=== PATIENT | male | born 1995 | race Hispanic/Latino ===

== ENCOUNTER 2019-11-23 01:05 | Emergency (ER) | payer MEDICAID, OTHER, SELFPAY ==
[~2019-11-23] VITALS: Ht 190.5 cm; Wt 70.8 kg
[2019-11-23] MEDS ORDERED: AZITHROMYCIN 250MG TABLET PO ONE (03:45)
[2019-11-23] MEDS ORDERED: LIDOCAINE 1% SDV 5ML VIAL DILUENT ONE (03:45)
[2019-11-23] MEDS ORDERED: cefTRIAXone SOD 250MG VIAL (J0696 PER 250MG) IM ONE (03:45)
[2019-11-23 04:29] VITALS: BP 131/62
[2019-11-23 05:04] LABS: CHLAMYDIA DNA AMPLIFICATION NEGATIVE (NEGATIVE); GC DNA AMPLIFICATION POSITIVE (NEGATIVE)
== END 2019-11-23 04:28 | disposition home or self-care (01) ==
LOC: M ED 01:05
DX: R30.0 Dysuria (principal); R36.9 Urethral discharge, unspecified; J45.909 Unspecified asthma, uncomplicated; Z88.0 Allergy status to penicillin
CPT/HCPCS: 87661; 96372; 99283; J0696

== ENCOUNTER → 2020-01-09 | Outpatient (REF) | payer MEDICAID, OTHER | LOC: M LAB REF 21:24 | PROVIDERS: ATTEND Physician Assistant Medical | DX: Z11.3 Encounter for screening for infections with a predominantly sexual mode of transmission (principal) ==

== ENCOUNTER 2020-05-30 17:21 | Emergency (ER) | payer OTHER ==
[~2020-05-30] VITALS: Ht 182.9 cm; Wt 67.3 kg
[2020-05-30 17:22] VITALS: BP 135/57
[2020-05-30] MEDS ORDERED: ACETAMINOPHEN 325 MG TAB PO ONE (17:55)
--- NOTE | 2020-05-30 18:45 | REPVR ---
PROCEDURE INFORMATION: Exam: CT Maxillofacial Without Contrast Exam date and time: 05/30/2020 5:59 PM Age: 24 years old Clinical indication: Injury or trauma; Other: Hit playing football; Blunt trauma (contusions or hematomas); Nose; Additional info: Pain over bridge of nose, hit playing football 4-5 days ago TECHNIQUE: Imaging protocol: Computed tomography images of the face without contrast. Radiation optimization: All CT scans at this facility use at least one of these dose optimization techniques: automated exposure control; mA and/or kV adjustment per patient size (includes targeted exams where dose is matched to clinical indication); or iterative reconstruction. COMPARISON: No relevant prior studies available. FINDINGS: Orbital cavity: Normal appearing orbits. Bones/joints: There is a complex fracture of the left nasal ala with 3 mm of inward displacement of the distal fracture fragment. The fracture line extends through the midline nasal bone near the tip In addition in this area there is severe soft tissue swelling. The orbital floors appears intact. Paranasal sinuses: Clear paranasal sinuses. Mastoid air cells: Clear mastoid air cells. IMPRESSION: Complex fracture of the left nasal ala with 3 mm of offset. The fracture line extends through the midline nasal bone is well near the tip. There is marked soft tissue swelling left side of the nose. Electronically signed by: Alexander Walker On 05/30/2020 18:45:17 PM
[2020-05-30] MEDS ORDERED: IBUPROFEN 800 MG TAB PO ONE (19:00)
[2020-05-30] MEDS ORDERED: DOXYCYCLINE HYCLATE 100MG TABLET PO ONE (19:00)
[2020-05-30] MEDS ORDERED: IBUP80TA PO (19:01)
[2020-05-30] MEDS ORDERED: MEDR4PAK PO (19:01)
[2020-05-30] MEDS ORDERED: DOXY100C37 PO (19:01)
== END 2020-05-30 19:20 | disposition home or self-care (01) ==
LOC: M ED 17:21
DX: S02.2XXA Fracture of nasal bones, initial encounter for closed fracture (principal); W50.0XXA Accidental hit or strike by another person, initial encounter; Y92.9 Unspecified place or not applicable; Y93.62 Activity, american flag or touch football; Y99.9 Unspecified external cause status; F17.200 Nicotine dependence, unspecified, uncomplicated; F12.10 Cannabis abuse, uncomplicated; Z88.0 Allergy status to penicillin

== ENCOUNTER → 2020-06-10 | Outpatient (REF) | payer OTHER ==
[~2020-06-10] MED LIST: DOXY100C37 PO; IBUP80TA PO; MEDR4PAK PO
[2020-06-10 17:37] LABS: BASO # 0.1 10^3/uL (0.0-0.2); BASO % 0.7 % (0.0-1.0); EOS # 0.1 10^3/uL (0.0-0.5); EOS % 1.6 % (0.0-3.0); HEMATOCRIT 47.2 % (42.0-52.0); HEMOGLOBIN 14.9 g/dl (13.5-17.5); LYMPH # 1.3 10^3/uL (1.5-5.0); LYMPH % 17.3 % (24.0-44.0); MEAN CORPUSCULAR HEMOGLOBIN 31.3 pg (27.0-33.0); MEAN CORPUSCULAR HGB CONC 31.6 g/dl (32.0-36.5); MEAN CORPUSCULAR VOLUME 99.2 fl (80.0-96.0); MONO # 0.7 10^3/uL (0.0-0.8); MONO % 8.9 % (2.0-8.0); NEUTROPHILS # 5.5 10^3/uL (1.5-8.5); NEUTROPHILS % 71.2 % (36.0-66.0); PLATELET COUNT, AUTOMATED 335 10^3/uL (150-450); RED BLOOD COUNT 4.76 10^6/uL (4.30-6.10); WHITE BLOOD COUNT 7.7 10^3/uL (4.0-10.0)
[2020-06-10 18:06] LABS: ALBUMIN 3.8 GM/DL (3.2-5.2); ALT/SGPT 162 U/L (12-78); BILIRUBIN,TOTAL 0.5 MG/DL (0.2-1.0); BLOOD UREA NITROGEN 11 MG/DL (7-18); CALCIUM LEVEL 9.2 MG/DL (8.5-10.1); CARBON DIOXIDE LEVEL 33 MEQ/L (21-32); CHLORIDE LEVEL 106 MEQ/L (98-107); CHOLESTEROL LEVEL 145 MG/DL (<200); CREATININE FOR GFR 0.83 MG/DL (0.70-1.30); FREE T4 1.25 NG/DL (0.76-1.46); GLOMERULAR FILTRATION RATE > 60.0 (>60); GLUCOSE, FASTING 88 MG/DL (70-100); HDL CHOLESTEROL 65 MG/DL (>40); LDL CHOLESTEROL 71 MG/DL (<100); NON-HDL-C 80 MG/DL; POTASSIUM SERUM 4.6 MEQ/L (3.5-5.1); SODIUM LEVEL 141 MEQ/L (136-145); THYROID STIMULATING HORMONE 0.539 uIU/ML (0.358-3.740); TOTAL PROTEIN 7.9 GM/DL (6.4-8.2); TRIGLYCERIDES LEVEL 45 MG/DL (<150)
[2020-06-10 18:47] LABS: HIV 1&2 SCREEN CENTAUR NEGATIVE (NEGATIVE)
[2020-06-10 19:01] LABS: HEPATITIS C VIRUS ABY INDEX > 11.0 INDEX (<0.8)
== END ==
LOC: M LAB REF 16:34
PROVIDERS: ATTEND Nurse Practitioner Family
DX: Z00.00 Encounter for general adult medical examination without abnormal findings (principal); F41.9 Anxiety disorder, unspecified; F17.200 Nicotine dependence, unspecified, uncomplicated

== ENCOUNTER 2020-07-30 21:13 | Emergency (ER) | payer OTHER ==
[~2020-07-30] VITALS: Ht 182.9 cm; Wt 62.5 kg
[~2020-07-30 21:13] MED LIST changes: -DOXY100C37 PO; +DOXY1CAP62 PO
[2020-07-30] MEDS ORDERED: ALBU8.5H INH (21:19)
[2020-07-31] MEDS ORDERED: CEPH500C PO (01:44)
[2020-07-31] MEDS ORDERED: CEPHALEXIN 500 MG CAP PO ONE (01:45)
[2020-07-31 02:03] VITALS: BP 116/48
== END 2020-07-31 02:06 | disposition home or self-care (01) ==
LOC: M ED 21:13
DX: L03.114 Cellulitis of left upper limb (principal); Z88.0 Allergy status to penicillin

== ENCOUNTER 2020-09-15 18:53 | Emergency (ER) | payer OTHER ==
[~2020-09-15] VITALS: Ht 182.9 cm; Wt 63.6 kg
[~2020-09-15 18:53] MED LIST changes: +ALBU8.5H INH; +CEPH500C PO
[2020-09-15 19:47] VITALS: BP 138/85
== END 2020-09-15 23:38 | disposition home or self-care (01) ==
LOC: M ED 18:53
DX: F29 Unspecified psychosis not due to a substance or known physiological condition (principal); F19.10 Other psychoactive substance abuse, uncomplicated; J45.909 Unspecified asthma, uncomplicated; F17.200 Nicotine dependence, unspecified, uncomplicated; Z79.899 Other long term (current) drug therapy; Z88.0 Allergy status to penicillin

== ENCOUNTER 2020-09-18 01:16 | Emergency (ER) | payer OTHER ==
[~2020-09-18] VITALS: Ht 182.9 cm; Wt 59.2 kg
[2020-09-18] MEDS ORDERED: LORazepam 2 MG/ML VIAL IV STA ×2 (01:18→01:42)
[2020-09-18] MEDS ORDERED: LORazepam 2 MG/ML VIAL As Ordered ONE (01:20)
[2020-09-18] MEDS ORDERED: NS 1,000 ML IV ONE (01:20)
[2020-09-18 01:34] LABS: BASO # 0.1 10^3/uL (0.0-0.2); BASO % 0.3 % (0.0-1.0); EOS % 0.1 % (0.0-3.0); HEMATOCRIT 39.1 % (42.0-52.0); HEMOGLOBIN 13.3 g/dl (13.5-17.5); LYMPH # 2.6 10^3/uL (1.5-5.0); LYMPH % 13.4 % (24.0-44.0); MEAN CORPUSCULAR HEMOGLOBIN 31.4 pg (27.0-33.0); MEAN CORPUSCULAR VOLUME 92.2 fl (80.0-96.0); MONO # 1.9 10^3/uL (0.0-0.8); MONO % 9.7 % (2.0-8.0); NEUTROPHILS # 14.5 10^3/uL (1.5-8.5); PLATELET COUNT, AUTOMATED 341 10^3/uL (150-450); RED BLOOD COUNT 4.24 10^6/uL (4.30-6.10); WHITE BLOOD COUNT 19.1 10^3/uL (4.0-10.0)
[2020-09-18] MEDS ORDERED: DEXTROSE 50% 50 ML SYRINGE IV STA (02:54)
[2020-09-18] MEDS ORDERED: DEXTROSE 50% 50 ML SYRINGE As Ordered ONE (02:54)
[2020-09-18 03:05] LABS: ACETAMINOPHEN LEVEL < 2.0 UG/ML (10.0-30.0); ALT/SGPT 97 U/L (12-78); BILIRUBIN,DIRECT 0.3 MG/DL (0.0-0.2); BLOOD UREA NITROGEN 22 MG/DL (7-18); CARBON DIOXIDE LEVEL 27 MEQ/L (21-32); CHLORIDE LEVEL 111 MEQ/L (98-107); CPK CREATINE PHOSPHOKINASE 877 U/L (39-308); ETHYL ALCOHOL (ETHANOL) < 0.003 % (0.000-0.010); GLOMERULAR FILTRATION RATE > 60.0 (>60); GLUCOSE, FASTING 30 MG/DL (70-100); POTASSIUM SERUM 3.7 MEQ/L (3.5-5.1); SALICYLATE LEVEL < 1.7 MG/DL (5.0-30.0); SODIUM LEVEL 149 MEQ/L (136-145); THYROID STIMULATING HORMONE 0.764 uIU/ML (0.358-3.740); TOTAL PROTEIN 7.2 GM/DL (6.4-8.2)
[2020-09-18 03:34] LABS: AMPHETAMINES LEVEL URINE POSITIVE (NEGATIVE); BARBITURATES URINE NEGATIVE (NEGATIVE); BENZODIAZEPINES URINE NEGATIVE (NEGATIVE); CANNABINOIDS URINE POSITIVE (NEGATIVE); COCAINE METABOLITE URINE NEGATIVE (NEGATIVE); METHADONE URINE NEGATIVE (NEGATIVE); OPIATES URINE POSITIVE (NEGATIVE); PHENCYCLIDINE URINE NEGATIVE (NEGATIVE)
[2020-09-18 12:45] VITALS: BP 118/59
== END 2020-09-18 13:27 | disposition home or self-care (01) ==
LOC: M ED 01:16
DX: F19.10 Other psychoactive substance abuse, uncomplicated (principal); Z88.0 Allergy status to penicillin
CPT/HCPCS: 51701; 80048; 80076; 80143; 80307; 82077; 82550; 84443; 85025; 93041; 94760; 96361; 96374; 96375; 96376; 99285; J2060

== ENCOUNTER 2020-09-29 02:51 | Emergency (ER) | payer OTHER ==
[~2020-09-29] VITALS: Ht 182.9 cm; Wt 62.9 kg
[2020-09-29] MEDS ORDERED: BACT800T5 PO (07:30)
[2020-09-29] MEDS ORDERED: IBUPROFEN 800 MG TAB PO ONE (07:30)
[2020-09-29 07:52] VITALS: BP 128/65
== END 2020-09-29 08:01 | disposition home or self-care (01) ==
LOC: M ED 02:51
DX: L01.01 Non-bullous impetigo (principal); F11.10 Opioid abuse, uncomplicated; F42.4 Excoriation (skin-picking) disorder; Z88.0 Allergy status to penicillin

== ENCOUNTER 2020-09-30 18:36 | Emergency (ER) | payer OTHER ==
[~2020-09-30] VITALS: Ht 182.9 cm; Wt 61.4 kg
[~2020-09-30 18:36] MED LIST changes: +BACT800T5 PO
[2020-09-30 18:55] VITALS: BP 118/86
== END 2020-09-30 20:18 | disposition left against medical advice (07) ==
LOC: M ED 18:36
DX: F19.10 Other psychoactive substance abuse, uncomplicated (principal); Z53.9 Procedure and treatment not carried out, unspecified reason; F11.10 Opioid abuse, uncomplicated; F17.200 Nicotine dependence, unspecified, uncomplicated; Z88.0 Allergy status to penicillin

== ENCOUNTER 2020-10-19 20:02 | Emergency (ER) | payer OTHER ==
[~2020-10-19] VITALS: Ht 182.9 cm; Wt 68.2 kg
[2020-10-19] MEDS ORDERED: LORazepam 2 MG/ML VIAL As Ordered ONE (20:05)
[2020-10-19] MEDS ORDERED: HALOPERIDOL 5MG/ML VIAL (J1630 PER 1) As Ordered ONE (20:05)
[2020-10-19] MEDS ORDERED: LORazepam 2 MG/ML VIAL IM ONE (20:05)
[2020-10-19] MEDS ORDERED: diphenhydrAMINE 50MG/ML VIAL (J1200) As Ordered ONE (20:05)
[2020-10-19] MEDS ORDERED: NS 1,000 ML IV ONE (20:05)
[2020-10-19] MEDS ORDERED: diphenhydrAMINE 50MG/ML VIAL (J1200) IM ONE (20:05)
[2020-10-19] MEDS ORDERED: HALOPERIDOL 5MG/ML VIAL (J1630 PER 1) IM ONE (20:05)
[2020-10-19 20:54] LABS: BASO # 0.1 10^3/uL (0.0-0.2); BASO % 0.8 % (0.0-1.0); EOS # 0.2 10^3/uL (0.0-0.5); EOS % 3.5 % (0.0-3.0); HEMATOCRIT 44.1 % (42.0-52.0); HEMOGLOBIN 14.4 g/dl (13.5-17.5); LYMPH # 1.4 10^3/uL (1.5-5.0); LYMPH % 22.6 % (24.0-44.0); MEAN CORPUSCULAR HGB CONC 32.7 g/dl (32.0-36.5); MEAN CORPUSCULAR VOLUME 94.8 fl (80.0-96.0); MONO # 0.7 10^3/uL (0.0-0.8); NEUTROPHILS # 3.7 10^3/uL (1.5-8.5); NEUTROPHILS % 61.6 % (36.0-66.0); PLATELET COUNT, AUTOMATED 316 10^3/uL (150-450); RED BLOOD COUNT 4.65 10^6/uL (4.30-6.10)
[2020-10-19 21:27] LABS: ACETAMINOPHEN LEVEL < 2.0 UG/ML (10.0-30.0); ALBUMIN 3.7 GM/DL (3.2-5.2); ALT/SGPT 174 U/L (12-78); BILIRUBIN,DIRECT 0.2 MG/DL (0.0-0.2); BILIRUBIN,TOTAL 0.5 MG/DL (0.2-1.0); BLOOD UREA NITROGEN 14 MG/DL (7-18); CALCIUM LEVEL 8.8 MG/DL (8.5-10.1); CARBON DIOXIDE LEVEL 27 MEQ/L (21-32); CHLORIDE LEVEL 109 MEQ/L (98-107); CPK CREATINE PHOSPHOKINASE 279 U/L (39-308); CREATININE FOR GFR 1.02 MG/DL (0.70-1.30); ETHYL ALCOHOL (ETHANOL) 0.004 % (0.000-0.010); GLOMERULAR FILTRATION RATE > 60.0 (>60); GLUCOSE, FASTING 95 MG/DL (70-100); SALICYLATE LEVEL < 1.7 MG/DL (5.0-30.0); SODIUM LEVEL 143 MEQ/L (136-145); TOTAL PROTEIN 7.2 GM/DL (6.4-8.2)
[2020-10-20] MEDS ORDERED: NS 1,000 ML IV ONE (00:05)
[2020-10-20 02:13] LABS: AMPHETAMINES LEVEL URINE POSITIVE (NEGATIVE); BARBITURATES URINE NEGATIVE (NEGATIVE); BENZODIAZEPINES URINE NEGATIVE (NEGATIVE); CANNABINOIDS URINE POSITIVE (NEGATIVE); COCAINE METABOLITE URINE NEGATIVE (NEGATIVE); METHADONE URINE NEGATIVE (NEGATIVE); OPIATES URINE POSITIVE (NEGATIVE); PHENCYCLIDINE URINE NEGATIVE (NEGATIVE)
[2020-10-20 12:55] VITALS: BP 101/50
--- NOTE | 2020-10-20 20:03 | ECGEPIP ---
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
== END 2020-10-20 13:00 | disposition home or self-care (01) ==
LOC: M ED 20:02
DX: F19.10 Other psychoactive substance abuse, uncomplicated (principal); F10.10 Alcohol abuse, uncomplicated; Z88.0 Allergy status to penicillin
CPT/HCPCS: 51701; 80048; 80076; 80143; 80307; 82077; 82550; 84443; 85025; 93005; 93041; 94760; 96360; 96361; 96372; 99285; J1200; J1630; J2060

== ENCOUNTER 2020-11-01 18:46 | Emergency (ER) | payer OTHER ==
[~2020-11-01] VITALS: Ht 182.9 cm; Wt 67.2 kg
[2020-11-01 18:55] VITALS: BP 134/69
[2020-11-01 19:18] LABS: HEMATOCRIT 36.4 % (42.0-52.0); HEMOGLOBIN 12.3 g/dl (13.5-17.5); MEAN CORPUSCULAR HEMOGLOBIN 31.5 pg (27.0-33.0); MEAN CORPUSCULAR HGB CONC 33.8 g/dl (32.0-36.5); MEAN CORPUSCULAR VOLUME 93.1 fl (80.0-96.0); PLATELET COUNT, AUTOMATED 307 10^3/uL (150-450); RED BLOOD COUNT 3.91 10^6/uL (4.30-6.10); WHITE BLOOD COUNT 12.4 10^3/uL (4.0-10.0)
[2020-11-01] MEDS ORDERED: BUPR1FIL (19:56)
[2020-11-01 19:57] LABS: ACETAMINOPHEN LEVEL 2.2 UG/ML (10.0-30.0); ALBUMIN 3.6 GM/DL (3.2-5.2); ALT/SGPT 140 U/L (12-78); BILIRUBIN,DIRECT 0.2 MG/DL (0.0-0.2); BILIRUBIN,TOTAL 0.5 MG/DL (0.2-1.0); BLOOD UREA NITROGEN 16 MG/DL (7-18); CALCIUM LEVEL 8.5 MG/DL (8.5-10.1); CARBON DIOXIDE LEVEL 28 MEQ/L (21-32); CHLORIDE LEVEL 106 MEQ/L (98-107); CREATININE FOR GFR 1.22 MG/DL (0.70-1.30); ETHYL ALCOHOL (ETHANOL) 0.003 % (0.000-0.010); GLOMERULAR FILTRATION RATE > 60.0 (>60); GLUCOSE, FASTING 46 MG/DL (70-100); POTASSIUM SERUM 3.9 MEQ/L (3.5-5.1); SALICYLATE LEVEL < 1.7 MG/DL (5.0-30.0); SODIUM LEVEL 142 MEQ/L (136-145); TOTAL PROTEIN 6.4 GM/DL (6.4-8.2)
[2020-11-01 20:21] LABS: AMPHETAMINES LEVEL URINE POSITIVE (NEGATIVE); BARBITURATES URINE NEGATIVE (NEGATIVE); BENZODIAZEPINES URINE NEGATIVE (NEGATIVE); CANNABINOIDS URINE NEGATIVE (NEGATIVE); COCAINE METABOLITE URINE NEGATIVE (NEGATIVE); METHADONE URINE NEGATIVE (NEGATIVE); OPIATES URINE POSITIVE (NEGATIVE); PHENCYCLIDINE URINE NEGATIVE (NEGATIVE)
== END 2020-11-01 20:10 | disposition left against medical advice (07) ==
LOC: M ED 18:46
DX: R45.1 Restlessness and agitation (principal); Z53.9 Procedure and treatment not carried out, unspecified reason; F19.10 Other psychoactive substance abuse, uncomplicated; F17.200 Nicotine dependence, unspecified, uncomplicated; Z88.0 Allergy status to penicillin

== ENCOUNTER 2020-11-05 10:35 | Emergency (ER) | payer OTHER ==
[~2020-11-05] VITALS: Ht 182.9 cm; Wt 65.9 kg
[~2020-11-05 10:35] MED LIST changes: +BUPR1FIL
[2020-11-05 10:54] VITALS: BP 120/56
== END 2020-11-05 12:57 | disposition home or self-care (01) ==
LOC: M ED 10:35
DX: F19.10 Other psychoactive substance abuse, uncomplicated (principal); Z88.0 Allergy status to penicillin

== ENCOUNTER 2020-11-08 15:16 | Emergency (ER) | payer OTHER ==
[2020-11-08] MEDS ORDERED: LIDOCAINE 2% 5ML JELLY UROJET TOP ONE (15:30)
[2020-11-08 15:54] LABS: HEMATOCRIT 40.4 % (42.0-52.0); HEMOGLOBIN 13.3 g/dl (13.5-17.5); MEAN CORPUSCULAR HEMOGLOBIN 31.4 pg (27.0-33.0); MEAN CORPUSCULAR HGB CONC 32.9 g/dl (32.0-36.5); MEAN CORPUSCULAR VOLUME 95.5 fl (80.0-96.0); PLATELET COUNT, AUTOMATED 333 10^3/uL (150-450); RED BLOOD COUNT 4.23 10^6/uL (4.30-6.10); WHITE BLOOD COUNT 8.4 10^3/uL (4.0-10.0)
[2020-11-08 16:29] LABS: ACETAMINOPHEN LEVEL < 2.0 UG/ML (10.0-30.0); ALBUMIN 3.6 GM/DL (3.2-5.2); ALT/SGPT 172 U/L (12-78); BILIRUBIN,DIRECT < 0.1 MG/DL (0.0-0.2); BILIRUBIN,TOTAL 0.3 MG/DL (0.2-1.0); BLOOD UREA NITROGEN 16 MG/DL (7-18); CALCIUM LEVEL 8.7 MG/DL (8.5-10.1); CARBON DIOXIDE LEVEL 26 MEQ/L (21-32); CHLORIDE LEVEL 107 MEQ/L (98-107); CREATININE FOR GFR 1.12 MG/DL (0.70-1.30); ETHYL ALCOHOL (ETHANOL) < 0.003 % (0.000-0.010); GLOMERULAR FILTRATION RATE > 60.0 (>60); GLUCOSE, FASTING 86 MG/DL (70-100); POTASSIUM SERUM 4.1 MEQ/L (3.5-5.1); SALICYLATE LEVEL < 1.7 MG/DL (5.0-30.0); SODIUM LEVEL 141 MEQ/L (136-145); THYROID STIMULATING HORMONE 0.483 uIU/ML (0.358-3.740)
[2020-11-08 17:00] VITALS: BP 119/58
[2020-11-08 17:46] LABS: AMPHETAMINES LEVEL URINE POSITIVE (NEGATIVE); BARBITURATES URINE NEGATIVE (NEGATIVE); BENZODIAZEPINES URINE POSITIVE (NEGATIVE); CANNABINOIDS URINE NEGATIVE (NEGATIVE); COCAINE METABOLITE URINE NEGATIVE (NEGATIVE); METHADONE URINE NEGATIVE (NEGATIVE); OPIATES URINE POSITIVE (NEGATIVE); PHENCYCLIDINE URINE NEGATIVE (NEGATIVE)
== END 2020-11-08 16:25 | disposition home or self-care (01) ==
LOC: M ED 15:16
DX: F11.10 Opioid abuse, uncomplicated (principal); Z88.0 Allergy status to penicillin

== ENCOUNTER 2020-11-09 02:06 | Emergency (ER) | payer OTHER ==
[~2020-11-09] VITALS: Ht 180.3 cm; Wt 72.7 kg
[2020-11-09 02:37] LABS: BASO % 0.2 % (0.0-1.0); EOS # 0.1 10^3/uL (0.0-0.5); EOS % 0.9 % (0.0-3.0); HEMATOCRIT 39.7 % (42.0-52.0); HEMOGLOBIN 13.3 g/dl (13.5-17.5); LYMPH # 1.8 10^3/uL (1.5-5.0); LYMPH % 14.4 % (24.0-44.0); MEAN CORPUSCULAR HEMOGLOBIN 31.7 pg (27.0-33.0); MEAN CORPUSCULAR HGB CONC 33.5 g/dl (32.0-36.5); MEAN CORPUSCULAR VOLUME 94.5 fl (80.0-96.0); MONO # 1.1 10^3/uL (0.0-0.8); MONO % 8.5 % (2.0-8.0); NEUTROPHILS # 9.4 10^3/uL (1.5-8.5); NEUTROPHILS % 75.3 % (36.0-66.0); PLATELET COUNT, AUTOMATED 306 10^3/uL (150-450); WHITE BLOOD COUNT 12.5 10^3/uL (4.0-10.0)
[2020-11-09 03:12] LABS: ACETAMINOPHEN LEVEL < 2.0 UG/ML (10.0-30.0); ALBUMIN 3.6 GM/DL (3.2-5.2); ALT/SGPT 171 U/L (12-78); BILIRUBIN,DIRECT 0.1 MG/DL (0.0-0.2); BILIRUBIN,TOTAL 0.3 MG/DL (0.2-1.0); BLOOD UREA NITROGEN 16 MG/DL (7-18); CALCIUM LEVEL 8.8 MG/DL (8.5-10.1); CARBON DIOXIDE LEVEL 20 MEQ/L (21-32); CHLORIDE LEVEL 106 MEQ/L (98-107); CPK CREATINE PHOSPHOKINASE 714 U/L (39-308); ETHYL ALCOHOL (ETHANOL) 0.003 % (0.000-0.010); GLOMERULAR FILTRATION RATE > 60.0 (>60); GLUCOSE, FASTING 81 MG/DL (70-100); POTASSIUM SERUM 3.6 MEQ/L (3.5-5.1); SALICYLATE LEVEL < 1.7 MG/DL (5.0-30.0); SODIUM LEVEL 141 MEQ/L (136-145)
[2020-11-09 08:00] VITALS: BP 136/59
--- NOTE | 2020-11-10 05:35 | ECGEPIP ---
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
== END 2020-11-09 08:30 | disposition home or self-care (01) ==
LOC: M ED 02:06
DX: F19.10 Other psychoactive substance abuse, uncomplicated (principal); I45.19 Other right bundle-branch block; F32.9 Major depressive disorder, single episode, unspecified; F17.200 Nicotine dependence, unspecified, uncomplicated; Z88.0 Allergy status to penicillin

== ENCOUNTER 2020-11-17 04:14 | Inpatient (IN) | payer OTHER ==
[~2020-11-17] VITALS: Ht 182.9 cm; Wt 60.0 kg
[2020-11-17 04:52] LABS: HEMATOCRIT 39.2 % (42.0-52.0); HEMOGLOBIN 13.2 g/dl (13.5-17.5); MEAN CORPUSCULAR HEMOGLOBIN 31.7 pg (27.0-33.0); MEAN CORPUSCULAR HGB CONC 33.7 g/dl (32.0-36.5); MEAN CORPUSCULAR VOLUME 94.2 fl (80.0-96.0); PLATELET COUNT, AUTOMATED 293 10^3/uL (150-450); RED BLOOD COUNT 4.16 10^6/uL (4.30-6.10); WHITE BLOOD COUNT 11.4 10^3/uL (4.0-10.0)
[2020-11-17 05:25] LABS: ACETAMINOPHEN LEVEL < 2.0 UG/ML (10.0-30.0); ALBUMIN 3.7 GM/DL (3.2-5.2); ALT/SGPT 172 U/L (12-78); BILIRUBIN,DIRECT 0.2 MG/DL (0.0-0.2); BILIRUBIN,TOTAL 0.5 MG/DL (0.2-1.0); BLOOD UREA NITROGEN 19 MG/DL (7-18); CALCIUM LEVEL 8.7 MG/DL (8.5-10.1); CARBON DIOXIDE LEVEL 29 MEQ/L (21-32); CHLORIDE LEVEL 105 MEQ/L (98-107); CPK CREATINE PHOSPHOKINASE 248 U/L (39-308); CREATININE FOR GFR 1.01 MG/DL (0.70-1.30); ETHYL ALCOHOL (ETHANOL) < 0.003 % (0.000-0.010); GLOMERULAR FILTRATION RATE > 60.0 (>60); GLUCOSE, FASTING 80 MG/DL (70-100); POTASSIUM SERUM 4.3 MEQ/L (3.5-5.1); SALICYLATE LEVEL < 1.7 MG/DL (5.0-30.0); SODIUM LEVEL 140 MEQ/L (136-145); TOTAL PROTEIN 7.2 GM/DL (6.4-8.2)
[2020-11-17 05:29] LABS: AMPHETAMINES LEVEL URINE POSITIVE (NEGATIVE); BARBITURATES URINE NEGATIVE (NEGATIVE); BENZODIAZEPINES URINE NEGATIVE (NEGATIVE); CANNABINOIDS URINE POSITIVE (NEGATIVE); COCAINE METABOLITE URINE NEGATIVE (NEGATIVE); METHADONE URINE NEGATIVE (NEGATIVE); OPIATES URINE NEGATIVE (NEGATIVE); PHENCYCLIDINE URINE NEGATIVE (NEGATIVE)
[2020-11-17 13:42] LABS: RSV AMPLIFICATION NEGATIVE (NEGATIVE)
[2020-11-17] MEDS ORDERED: HOME MED LIST COMPLETE! XX SCH (13:55)
[2020-11-17] MEDS ORDERED: MAALOX 30 ML SUSP *UDC PO PRN (16:05)
[2020-11-17] MEDS ORDERED: MOM 30ML SUSPENSION UDC PO PRN (16:05)
[2020-11-17] MEDS ORDERED: ACETAMINOPHEN TAB 650MG DOSE (2X325MG) PO PRN (16:05)
[2020-11-17] MEDS ORDERED: traZODone 50 MG TAB PO PRN (16:05)
[2020-11-17 17:16] VITALS: BP 120/69
[2020-11-18 06:41] VITALS: BP 133/60
--- NOTE | 2020-11-18 14:24 | MHHPEPDOC ---
General Date Of Admission: Nov 18, 2020 Legal Status: 9.39 Chief Complaint I do not want to see anybody ". History of Present Illness HISTORY OF THE PRESENT ILLNESS: Patient refused to see me as per the ED report ,patient is a 24 -year-old , male, who presents with [place] [employer] for disorderly and destructive behavior at a hotel room. Patient reports he used heroin today however is extremely hyperactive Police Department reports he was using Michelle and police were called to the hotel where patient was breaking things far father from [place] was present and in town to help encourage patient to get clean per the police department patient made suicidal homicidal statement to his father while trying to light the carpet on five saying he was going to suffocate both of them patient arrives as 9.41 currently is uncooperative . He was positive for cannabis and amphetamine. Past Psychiatric History Not known, however he visited emergency room multiple times due to intoxication, he was positive for cannabis amphetamine and opiates during his last ER visit. Past Medical History Medical Problems Unable to obtain Family Medical/Psychiatric HX Medical Problems Not known Addiction: Yes Addiction History cocaine, amphetamines, opioids, other Social History Childhood: . Abuse/Trauma:. Current Living Situation: . Education: . Employment: . Social Support: . Legal: . Marital: . Mental Status Examination General Appearance: disheveled Demeanor: hostile Eye Contact: other Behavior: uncooperative Mood: irritable Affect: constricted, hostile Thought Process: other Thought Content (Delusions): other Thought Content (Other): none reported, appears paranoid Thought Content (Aggressive): none reported Perception (Hallucinations): none reported Perception (Other): none reported Cognition (Impairment of): none reported Cognition(Intelligence Est.): other Insight: poor, other Judgment: Poor Diagnoses 1. Psychotic disorder unspecified 2. Substance-induced psychotic disorder 3. Amphetamine, cocaine, cannabis use disorder A-FIB/CHADSVASC A-FIB History Current/History of A-Fib/PAF?: No Current PO Anticoag Therapy: No Assessment Patient is uncooperative, considering his multiple visits to the ER for drug intoxication it is probably substance-induced psychotic disorder. After he is awake and more cooperative we will assess the patient. Initial Treatment Plan 1. Patient was admitted on a [9.39] status. 2. Complete history was obtained. 3. With patients permission, family will be contacted and database will be expanded. 4. Patients medication regimen will be reviewed and changed accordingly. 5. Patient will be provided with protected environment. 6. Patient will be treated with individual, group, and milieu therapies. 7. Patient will receive supportive psych-education. 8. Discharge planning will commence immediately. 9. Outpatient follow-up treatment will be strongly recommended. 10. The initial treatment plan will focus initially on: * Depression. * Risk for suicide. ESTIMATED LENGTH OF STAY: 4 to 5 days DAYS. TIME SPENT COUNSELING AND COORDINATING INITIAL CARE: 25 minutes minutes. Vital Signs Vital Signs Date Time Temp Pulse Resp B/P (MAP) Pulse Ox O2 Delivery O2 Flow Rate FiO2 11/18/20 06:41 97.9 68 18 133/60 (84) 99 Room Air Medications Scheduled PRN Albuterol Sulfate (Albuterol Sulfate Hfa) 8.5 Gm Hfa.aer.ad, 2 PUFFS INH Q4H PRN for SOB/WHEEZING, (Reported) Allergies Coded Allergies: Penicillins (Verified Allergy, Unknown, 09/30/20) ANDREZ FRIEND MD Nov 18, 2020 14:23
--- NOTE | 2020-11-18 16:13 | HPEPDOC ---
General Date of Admission Nov 17, 2020 at 16:01 Date of Service: Nov 18, 2020 Chief Complaint The patient is a 24-year-old male admitted with a reason for visit of Unspecified Psychotic Do. History of Present Illness Patient is 24 years old male requesting history of heroine abuse who presented to the hospital with psychosis. According to police department report report he had destructive behavior at the hotel room. per the police department patient made suicidal homicidal statement to his father while trying to light the carpet on five saying he was going to suffocate both of them. Patient is noncooperative, refused physical examination. He told me that he is fine and did not provide any other details Home Medications Scheduled PRN Albuterol Sulfate (Albuterol Sulfate Hfa) 8.5 Gm Hfa.aer.ad, 2 PUFFS INH Q4H PRN for SOB/WHEEZING, (Reported) Allergies Coded Allergies: Penicillins (Verified Allergy, Unknown, 09/30/20) Past Medical History Medical History Polysubstance abuse Family History Patient did not provide Social History * Smoker: current smoker Alcohol: Denies Drugs: cocaine, heroin, IV drug use A-FIB/CHADSVASC A-FIB History Current/History of A-Fib/PAF?: No Current PO Anticoag Therapy: No Review of Systems Constitutional: Denies: Chills, Fever Eyes: Denies: Pain ENT: Denies: Head Aches Skin: Denies: Rash Pulmonary: Denies: Dyspnea Cardiovascular: Denies: Chest Pain Gastrointestinal: Denies: Nausea Genitourinary: Denies: Dysuria Endocrine: Denies: Polydipsia Musculoskeletal: Denies: Neck Pain Neurological: Denies: Weakness Psych: Denies: Mood Normal Physical Examination General Exam: Negative: Cooperative (Refused physical examination) Vital Signs Vital Signs Date Time Temp Pulse Resp B/P (MAP) Pulse Ox O2 Delivery O2 Flow Rate FiO2 11/18/20 06:41 97.9 68 18 133/60 (84) 99 Room Air Assessment/Plan Patient is 24 years old male requesting history of heroine abuse who presented to the hospital with psychosis. According to police department report report he had destructive behavior at the hotel room. per the police department patient made suicidal homicidal statement to his father while trying to light the carpet on five saying he was going to suffocate both of them. Patient is noncooperative, refused physical examination. He told me that he is fine and did not provide any other details Problems (1) Psychosis Status: Acute Problem Text: Defer treatment to psych team Plan / VTE VTE Prophylaxis Ordered?: No VTE Exclusion Mechanical Proph: Low Risk for VTE ANDRIA MONTOYA DO Nov 18, 2020 16:13
[2020-11-18 16:46] VITALS: BP 128/60
[2020-11-19 06:39] VITALS: BP 124/59
[2020-11-19 09:00] VITALS: BP 112/65
[2020-11-19] MEDS: cloNIDine 0.1MG TABLET PO SCH (09:00)
--- NOTE | 2020-11-19 13:30 | MHIPNPDOC ---
[facility] Progress Note Progress Note DATE OF SERVICE: 11/19/20 HISTORY: Pt is a 24 year old Single, Male who was brought to the ED by police on a 9.41 after he trashed a hotel room. Per police, pt told his father that he was going to light the carpet on fire & smother both himself & his father. Pt appears to be under the influence of drugs. Pt. stated that he bought what he thought was Heroin and it turned out to be something else and "I did some crazy stuff" Pt. states that he does not remember the events. Patient refused to see provider yesterday, patient is a 24 -year-old , male, who presents with [place] [employer] for disorderly and destructive behavior at a hotel room. Patient reports he used heroin today however is extremely hyperactive Police Department reports he was using Michelle and police were called to the hotel where patient was breaking things far father from [place] was present and in town to help encourage patient to get clean per the police department patient made suicidal homicidal statement to his father while trying to light the carpet on five saying he was going to suffocate both of them patient arrives as 9.41 currently is uncooperative. He was positive for cannabis and amphetamine. VITAL SIGNS: See below. NEW TEST RESULTS: None CURRENT MEDICATIONS: See below. MENTAL STATUS EXAMINATION: Pt is a 24 year old Single, Male who was brought to the ED by police on a 9.41 after he trashed a hotel room. Speech: Is normal rate, tone and volume, impoverished, minimal responses Language skills are intact Thought processes including: linear and goal oriented Thought content: denies depression and anxiety. Denies suicidal/homicidal id eation, planning or intent. Abstract reasoning, and computation: fair Description of associations: denies, none observed Description of abnormal or psychotic thoughts: denies, none observed. Judgment: poor Insight: poor Orientation: alert and oriented to person, place, time and situation Recent and remote memory: intact Attention span and concentration: poor Language: fair Fund of knowledge: average Mood: labile Mood Affect: flat DIAGNOSES: Unspecified Psychotic Disorder rule out Substance Induced Mood Disorder Amphetamine/Methamphetamine Use Disorder ASSESSMENT: Patient is irritable, withdrawn and guarded. Labile mood and flat affect. He had little to no responses in the interview. States that he wants Methadone but was not on this prior to his admission. Patient is aloof and dismissive. Patient has no desire for any engagement in the one-to-one interview and request to leave MANAGEMENT PLAN: Continue medications as ordered as well as all supportive therapies. Will discharge from patient is stable. TIME SPENT: 15 minutes. Vital Signs Vital Signs Date Time Temp Pulse Resp B/P (MAP) Pulse Ox O2 Delivery O2 Flow Rate FiO2 11/19/20 06:39 97.5 67 12 124/59 (80) 100 Room Air Current Medications Current Medications Medications (Trade) Dose Ordered Sig/Juan Route PRN Reason Start Time Stop Time Status Last Admin Dose Admin Acetaminophen (Tylenol Tab) 650 mg Q6HP PRN PO HEADACHE or MILD DISCOMFORT 11/17/20 16:05 Al Hydrox/Mg Hydrox/Simethicone (Mylanta) 30 ml Q4HP PRN PO HEARTBURN/INDIGESTION 11/17/20 16:05 Home Med (Home Med List Complete!) ASDIRECTED XX 11/17/20 13:55 11/17/20 14:00 DC Magnesium Hydroxide (Milk Of Magnesia) 30 ml DAILYPRN PRN PO CONSTIPATION 11/17/20 16:05 Trazodone HCl (Desyrel) 50 mg QHSP PRN PO INSOMNIA 11/17/20 16:05 Allergies Coded Allergies: Penicillins (Verified Allergy, Unknown, 09/30/20) JAIME ENRIQUEZ NP Nov 19, 2020 11:04
[2020-11-19 16:10] VITALS: BP 143/83
[2020-11-19 16:14] VITALS: BP 100/54
[2020-11-20 06:52] VITALS: BP 127/60
[2020-11-20] MEDS: cloNIDine 0.1MG TABLET PO SCH (08:35)
--- NOTE | 2020-11-20 15:51 | MHDSPDOC ---
[facility] Discharge Summary Discharge Summary DATE OF ADMISSION: Nov 17, 2020 at 16:01 DATE OF DISCHARGE: November 20, 2020 at 1349 DISCHARGE DIAGNOSES: Unspecified Psychotic Disorder rule out Substance Induced Mood Disorder Amphetamine/Methamphetamine Use Disorder. REASON FOR ADMISSION: Pt is a 24 year old Single, Male who was brought to the ED by police on a 9.41 after he trashed a hotel room. Per police, pt. told his father that he was going to light the carpet on fire & smother both himself & his father. Pt appears to be under the influence of drugs. Pt. stated that he bought what he thought was Heroin and it turned out to be something else and "I did some crazy stuff" Pt. states that he does not remember the events. Patient refused to see provider yesterday, patient is a 24 -year-old , male, who presents with [place] [employer] for disorderly and destructive behavior at a hotel room. Patient reports he used heroin today however is extremely hyperactive Police Department reports he was using Michelle and police were called to the hotel where patient was breaking things far father from [place] was present and in town to help encourage patient to get clean per the police department patient made suicidal homicidal statement to his father while trying to light the carpet on five saying he was going to suffocate both of them patient arrives as 9.41 currently is uncooperative. He was positive for cannabis and amphetamine. VITAL SIGNS: See below. CONSULTANTS INVOLVED: See Medical H + P by Hospitalist TREATMENT AND PROGRESS ON THE UNIT: [facility] 9.39 legal status was afforded the following treatment modalities: 1) Individual Therapy 2) Group Therapy 3) Medication Management 4) Milieu Therapy 5) Safe Environment HOSPITAL COURSE: [facility] a 9.39 legal status. Patient was offered medications. He refused medications as stated that he did not find beneficial. Psychotic symptoms improved with treatment. Pt did not attend any groups during stay. Pts psychotic symptoms improved with admission. Patient was encouraged to consider Rehab and this early afternoon, this provider was told that patient was considering rehab. During interview, he initially stated that he would go to rehab and instantaneously he sat up and demanded to be discharged to home. Patient was living at a motel and his father reportedly is afraid of him. While hospitalized patient has been withdrawing, he did not want medications when he was assessed by the first provider. He has subsequently not been engaged in the interviews and stated that he did not want medications to help with withdrawal. Clonidine 0.1 mg BID was ordered but he has refused this. On day of discharge pt. denied depression, anxiety, insomnia, SI/HI, hallucinations, delusions. Pt was discharged home (friend's house) with follow- up is at [facility]. Pt felt safe for discharge. DISCHARGE ASSESSMENT: In today's interview, patient is alert and oriented, pt.s dress is appropriate. Hygiene and grooming is unkempt. He has been disengaged in all of the interviews. Denies depression and anxiety. Denies suicidal and homicidal ideation, planning or intent. Denies and is not observed with bianca, psychotic symptoms of delusions, bizarre thinking, obsessions, paranoia, ruminations illogical thoughts, flight of ideas or having poor insight and judgement. Reinforced with patient need to abstain from alcohol and drugs. At discharge patient has normal mentation, declines further hospitalization on a voluntary status and meets criteria for discharge today. Discussed indications of medications, potential benefits and risks, alternatives (including no treatment) and questions were encouraged and answered. Patient encouraged to return to hospital if symptoms worsen or change and encouraged to call unit if he/she/they needs to speak to provider for questions regarding medications or care. MENTAL STATUS EXAMINATION ON DISCHARGE: Pt is a 24 year old Single, Male who was brought to the ED by police on a 9.41 after he trashed a hotel room. He was positive for cannabis and amphetamine. Speech: Is fluid, conversant, normal rate, tone and volume Language skills are intact Thought processes including: linear and goal oriented Thought content: denies depression and anxiety. Denies suicidal/homicidal ideation, planning or intent. Abstract reasoning, and computation: fair Description of associations: denies, none observed Description of abnormal or psychotic thoughts: denies, none observed. Judgment: fair Insight: fair Orientation: alert and oriented to person, place, time and situation Recent and remote memory: intact Attention span and concentration: fair Language: expansive Fund of knowledge: average Mood: Irritable Mood Affect: Congruent with mood Suicide Risk Assessment: 1) Does the patient wish to be ? No 2) Since your admission, have you had any actual thought of killing yourself? No 3) Since your admission, have you been thinking about how you might do this? No 4) Since your admission, have you had these thoughts and had some intention of acting on them? No 5) Since your admission, have you started to work out or worked out the deta ils of how to kill yourself? No 5A) Do you intent to carry out this plan? No and NA 6) Have you ever done anything, started anything, or prepared to do anything with any intent to ? No 6A) How long since your admission did you do any of these? NA MEDICATIONS ON DISCHARGE: See Medication Reconciliation - None PLAN/FOLLOWUP ARRANGEMENTS: Patient states that he is staying with a friend. He is following up at [facility]. The amount of time spent in the coordination of care for this patient was approximately 25 minutes. ETOH/Disorder Med Rx ETOH/DRUG DISORDER RX: Offrd @ d/c & pt refused Vital Signs/I&Os Vital Signs Date Time Temp Pulse Resp B/P (MAP) Pulse Ox O2 Delivery O2 Flow Rate FiO2 11/20/20 08:58 Room Air 11/20/20 06:52 98.8 66 20 127/60 (82) 99 Medications Scheduled PRN Albuterol Sulfate (Albuterol Sulfate Hfa) 8.5 Gm Hfa.aer.ad, 2 PUFFS INH Q4H PRN for SOB/WHEEZING, (Reported) Allergies Coded Allergies: Penicillins (Verified Allergy, Unknown, 09/30/20) JAIME ENRIQUEZ NP Nov 20, 2020 14:06
== END 2020-11-20 15:01 | disposition home or self-care (01) | DRG 751 ==
LOC: M ED 04:14 → M ED INP 16:01 → M PSY 17:19
PROVIDERS: ADMIT Psychiatry & Neurology Psychiatry; ATTEND Psychiatry & Neurology Psychiatry
DX: F29 Unspecified psychosis not due to a substance or known physiological condition (principal); F19.159 Other psychoactive substance abuse with psychoactive substance-induced psychotic disorder, unspecified; F14.10 Cocaine abuse, uncomplicated; F12.10 Cannabis abuse, uncomplicated; F17.200 Nicotine dependence, unspecified, uncomplicated; F19.139 Other psychoactive substance abuse with withdrawal, unspecified; F15.10 Other stimulant abuse, uncomplicated; Z88.0 Allergy status to penicillin; Z79.899 Other long term (current) drug therapy

== ENCOUNTER 2021-01-08 12:23 | Emergency (ER) | payer OTHER ==
[~2021-01-08] VITALS: Ht 182.9 cm; Wt 61.9 kg
[~2021-01-08 12:23] MED LIST changes: +ALBU8.5H; +DOXY-350 PO; +DOXY-443 PO; -DOXY1CAP62 PO; +LEVO250T3 PO
[2021-01-08 13:08] VITALS: BP 122/61
[2021-01-10] MEDS ORDERED: BACT800T5 PO (16:04)
[2021-01-10] MEDS ORDERED: IBUP80TA PO (16:04)
== END 2021-01-08 13:20 | disposition home or self-care (01) ==
LOC: M ED 12:23 → EDBD 12:23 → MERGE 12:23 → M ED 13:20
DX: F19.20 Other psychoactive substance dependence, uncomplicated (principal); F17.200 Nicotine dependence, unspecified, uncomplicated; Z88.0 Allergy status to penicillin

== ENCOUNTER 2021-03-01 22:25 | Emergency (ER) | payer OTHER ==
[~2021-03-01] VITALS: Ht 182.9 cm; Wt 77.7 kg
[2021-03-01 22:26] VITALS: BP 123/61
[2021-03-02] MEDS ORDERED: IBUPROFEN 800 MG TAB PO ONE (00:50)
[2021-03-02] MEDS ORDERED: IBUP80TA PO (00:51)
== END 2021-03-02 01:16 | disposition home or self-care (01) ==
LOC: M ED 22:25
DX: S01.01XA Laceration without foreign body of scalp, initial encounter (principal); Y92.149 Unspecified place in prison as the place of occurrence of the external cause; Y93.9 Activity, unspecified; Y99.9 Unspecified external cause status; T76.11XA Adult physical abuse, suspected, initial encounter; F17.200 Nicotine dependence, unspecified, uncomplicated; F11.10 Opioid abuse, uncomplicated; Z88.0 Allergy status to penicillin